=== PATIENT | male | born 1960 | race Caucasian/White ===

== ENCOUNTER 2019-05-12 05:11 | Emergency (ER) | payer MEDICAID ==
[2019-05-12] MEDS ORDERED: Sodium Chloride 0.9% 1000 ML 1,000 ML IV STA (05:40)
[2019-05-12] MEDS ORDERED: Hydromorphone 1 mg/ml Ampule IV ONE ×2 (05:40→08:19)
[2019-05-12] MEDS ORDERED: Zofran 4 MG/2 ML VIAL IV ONE (05:40)
[2019-05-12] MEDS ORDERED: TORAdol 30 mg Injection IV ONE (05:40)
--- NOTE | 2019-05-12 05:40 | ERPHSYRPT ---
- History of Present Illness Historian: patient, family Exam Limitations: no limitations Patient Subjective Stated Complaint: pt states he woke up yesterday morning with l sided abdomenal pain Triage Nursing Assessment: pt is alert an orienteed. states that his pain in l abdomen is 5/10 at this time Timing/Duration: today Activities at Onset: none Quality: sharpness, stabbing Abdominal Pain Onset Location: flank (left) Pain Radiation: groin (left) Severity of Pain-Max: moderate Severity of Pain-Current: moderate Modifying Factors: Improves With: nothing Associated Symptoms: nausea, No fever/chills, No neck pain, No shortness of breath, No vomiting <PILAR WOLFF - Last Filed: 05/12/19 06:16> <JULIO C BEAR - Last Filed: 05/16/19 11:32> - History of Present Illness Time Seen by Provider: 05/12/19 05:30 Physician History: 59 y/o white male presents with h/o sudden onset of left flank pain with radiation into leg groin at 0400 this am. pt has never had this type of pain before. no prior abd surgeries. (PILAR WOLFF) Allergies/Adverse Reactions: No Known Drug Allergies Allergy (Unverified 05/12/19 05:27) - Review of Systems Constitutional: No Symptoms Eyes: No Symptoms Ears, Nose, & Throat: No Symptoms Respiratory: No Symptoms Cardiac: No Symptoms Abdominal/Gastrointestinal: No Abdominal Pain, No Nausea, No Vomiting, No Diarrhea Genitourinary Symptoms: Flank Pain (left flank) Musculoskeletal: No Symptoms Skin: No Symptoms Neurological: No Symptoms Psychological: No Symptoms Endocrine: No Symptoms Hematologic/Lymphatic: No Symptoms Immunological/Allergic: No Symptoms All Other Systems: Reviewed and Negative <PILAR WOLFF - Last Filed: 05/12/19 06:16> - Past Medical History Pertinent Past Medical History: Yes Neurological History: No Pertinent History ENT History: No Pertinent History Cardiac History: No Pertinent History Respiratory History: Asthma Endocrine Medical History: No Pertinent History Musculoskeletal History: No Pertinent History GI Medical History: No Pertinent History History: No Pertinent History Psycho-Social History: No Pertinent History Male Reproductive Disorders: No Pertinent History - Past Surgical History Past Surgical History: No Neuro Surgical History: No Pertinent History Cardiac: No Pertinent History Respiratory: No Pertinent History Gastrointestinal: No Pertinent History Genitourinary: No Pertinent History Musculoskeletal: No Pertinent History Male Surgical History: No Pertinent History - Social History Smoking Status: Never smoker Exposure to second hand smoke: No Drug Use: none <PILAR WOLFF - Last Filed: 05/12/19 06:16> - Physical Exam General Appearance: moderate distress, alert, anxiety Eye Exam: PERRL/EOMI, eyes nml inspection Ears, Nose, Throat Exam: normal ENT inspection, moist mucous membranes Neck Exam: normal inspection, non-tender, supple, full range of motion Respiratory Exam: normal breath sounds, lungs clear, No chest tenderness, No respiratory distress, No airway intact Cardiovascular Exam: regular rate/rhythm, normal heart sounds, normal peripheral pulses Gastrointestinal/Abdomen Exam: soft, normal bowel sounds, No tenderness Rectal Exam: not done Back Exam: normal inspection, normal range of motion, No CVA tenderness, No vertebral tenderness Extremity Exam: normal inspection, normal range of motion, No pelvis stable Neurologic Exam: alert, oriented x 3, cooperative, call or contact centre manager II-XII nml as tested, normal mood/affect, nml cerebellar function Skin Exam: normal color, warm, dry Lymphatic Exam: No adenopathy SpO2 Interpretation: normal SpO2: 98 O2 Delivery: Room Air <PILAR WOLFF - Last Filed: 05/12/19 06:16> - Nursing Vital Signs Nursing Vital Signs: Initial Vital Signs Temperature 97.3 F 05/12/19 05:13 Respiratory Rate 19 05/12/19 05:13 Blood Pressure 158/112 05/12/19 05:13 O2 Sat by Pulse Oximetry 98 05/12/19 05:13 Pain Scale Pain Intensity 2 - Course Nursing assessment & vital signs reviewed: Yes <PILAR WOLFF - Last Filed: 05/12/19 06:16> - CT Exams Abdomen/Pelvis CT Interpretation: Other (stone distal left ureter - mild obstruction. R kidney lower pole 2.9 exophytic lesion - suspicious for solid mass) <JULIO C BEAR - Last Filed: 05/16/19 11:32> Ordered Tests: Medication Summary Discontinued Medications Generic Name Dose Route Start Last Admin Trade Name Freq PRN Reason Stop Dose Admin Hydromorphone HCl 1 mg 05/12/19 05:40 05/12/19 06:08 Hydromorphone 1 Mg/Ml Ampule IV 05/12/19 05:41 1 mg STAT ONE Administration Hydromorphone HCl Confirm 05/12/19 05:46 Hydromorphone 1 Mg/Ml Ampule Administered 05/12/19 05:47 Dose 1 mg .ROUTE .STK-MED ONE Hydromorphone HCl 0.5 mg 05/12/19 08:19 05/12/19 08:25 Hydromorphone 1 Mg/Ml Ampule IV 05/12/19 08:20 0.5 mg STAT ONE Administration Hydromorphone HCl Confirm 05/12/19 08:22 Hydromorphone 1 Mg/Ml Ampule Administered 05/12/19 08:23 Dose 1 mg .ROUTE .STK-MED ONE Sodium Chloride 1,000 mls @ 999 mls/hr 05/12/19 05:40 05/12/19 07:54 Sodium Chloride 0.9% 1000 Ml IV 05/12/19 06:40 Infused .Q1H1M STA Infusion Sodium Chloride Confirm 05/12/19 05:46 Sodium Chloride 0.9% 1000 Ml Administered 05/12/19 05:47 Dose 1,000 mls @ ud .ROUTE .STK-MED ONE Ketorolac Tromethamine 30 mg 05/12/19 05:40 05/12/19 06:07 Toradol 30 Mg Injection IV 05/12/19 05:41 30 mg STAT ONE Administration Ketorolac Tromethamine Confirm 05/12/19 05:45 Toradol 30 Mg Injection Administered 05/12/19 05:46 Dose 30 mg .ROUTE .STK-MED ONE Ondansetron HCl 4 mg 05/12/19 05:40 05/12/19 06:07 Zofran 4 Mg/2 Ml Vial IV 05/12/19 05:41 4 mg STAT ONE Administration Ondansetron HCl Confirm 05/12/19 05:45 Zofran 4 Mg/2 Ml Vial Administered 05/12/19 05:46 Dose 4 mg .ROUTE .STK-MED ONE Lab/Rad Data: Laboratory Result Diagrams 05/12/19 05:43 05/12/19 05:43 Laboratory Results 05/12/19 05/12/19 05/12/19 Range/Units 05:45 05:43 05:43 WBC 4.8 (4.0-10.5) K/mm3 RBC 5.11 (4.1-5.6) M/mm3 Hgb 15.1 (12.5-18.0) gm/dl Hct 45.0 (42-50) % MCV 88.1 (78-100) fl MCH 29.5 (26-32) pg MCHC 33.6 (32-36) g/dl RDW 13.5 (11.5-14.0) % Plt Count 231 (150-450) K/mm3 MPV 8.8 (6-9.5) fl Gran % 37.7 (36.0-66.0) % Eos # (Auto) 0.12 (0-0.5) Absolute Lymphs (auto) 2.39 (1.0-4.6) Absolute Monos (auto) 0.43 (0.0-1.3) Lymphocytes % 50.2 H (24.0-44.0) % Monocytes % 9.0 (0.0-12.0) % Eosinophils % 2.5 (0.00-5.0) % Basophils % 0.6 (0.0-0.4) % Absolute Granulocytes 1.79 (1.4-6.9) Basophils # 0.03 (0-0.4) Sodium 144 (137-145) mmol/L Potassium 3.9 (3.5-5.1) mmol/L Chloride 106 (98-107) mmol/L Carbon Dioxide 28 (22-30) mmol/L Anion Gap 13.8 (5-15) MEQ/L BUN 15 (9-20) mg/dL Creatinine 1.00 (0.66-1.25) mg/dL Estimated GFR > 60.0 ML/MIN Glucose 103 (74-106) mg/dL Lactic Acid 1.5 (0.4-2.0) Calcium 9.2 (8.4-10.2) mg/dL Total Bilirubin 0.40 (0.2-1.3) mg/dL AST 23 (17-59) U/L ALT 16 (0-50) U/L Alkaline Phosphatase 47 (38-126) U/L Serum Total Protein 7.1 (6.3-8.2) g/dL Albumin 4.1 (3.5-5.0) g/dL Amylase 120 H (30-110) U/L Lipase 560 H (23-300) U/L - Progress Progress: improved, re-examined Counseled pt/family regarding: lab results, diagnosis, need for follow-up, rad results <PILAR WOLFF - Last Filed: 05/12/19 06:16> <JULIO C BEAR - Last Filed: 05/16/19 11:32> - Progress Progress Note: 05/12/19 06:52 transfer of care to dr. bear. i reviewed pt hx, condition lab results d/w him. he is aware of pending ct scan abd/pelvis. he accepts pt. (PILAR WOLFF) 05/12/19 08:[address] with patient; he is not planning on going to work and will stay for further exam with reference to the 2.9 CM right kidney lesion. US is ordered. Patient does not have a primary care provider; he was advised that he will need to have one with further evaluation of this lesion. 05/12/19 09:46 Advised patient that the US was evaluated by the radiologist - a CT with contrast was suggested; this has been ordered. Patient and spouse voiced understanding and satisfaction. 05/12/19 11:23 CT Abd/Pelvis with contrast right renal mass demonstrates faint enhancement worrisome for malignancy. Discussed with Dr. Peters's office ([facility]); she has set an appointment for May at 11:00AM. Advised patient of the plan for appointment. (JULIO C BEAR) - Departure Departure Disposition: Home Critical Care Time: No <PILAR WOLFF - Last Filed: 05/12/19 06:16> <JULIO C BEAR - Last Filed: 05/16/19 11:32> - Departure Condition: Stable Referrals: DOCTOR,NO FAMILY [Primary Care Provider] - Additional Instructions: drink plenty of fluids. add ibuprofen 600mg orally 3 times daily with food. follow up with urologist/primary doctor as needed. In addition, you have been scheduled for an appointment with Dr. Peters, Urologist, in [place] on Wednesday at 11:00 AM. Take CD of the radiology studies done this morning. Prescriptions: Hydrocodone/APAP 5/325 [[place]add[place] 5/325 mg] 1 each PO Q6H PRN PRN #10 tablet MDD 4 PRN Reason: Pain
[2019-05-12] MEDS ORDERED: TORAdol 30 mg Injection ONE (05:45)
[2019-05-12] MEDS ORDERED: Zofran 4 MG/2 ML VIAL ONE (05:45)
[2019-05-12 05:46] LABS: Absolute Neutrophil Ct (ANC) 1.79 (1.4-6.9); BASOPHIL % 0.6 % (0.0-0.4); Basophil (Absolute #) 0.03 (0-0.4); Eosinophil % 2.5 % (0.00-5.0); Eosinophil (Absolute #) 0.12 (0-0.5); Hemoglobin 15.1 gm/dl (12.5-18.0); Lymphocyte (Absolute #) 2.39 (1.0-4.6); Lymphocytes % 50.2 % (24.0-44.0); Mean Cell Volume 88.1 fl (78-100); Mean Corpuscular Hemoglobin 29.5 pg (26-32); Mean Corpuscular Hgb Concent. 33.6 g/dl (32-36); Mean Platelet Volume 8.8 fl (6-9.5); Monocyte (Absolute #) 0.43 (0.0-1.3); Neutrophil % 37.7 % (36.0-66.0); Platelet Count 231 K/mm3 (150-450); Red Blood Count 5.11 M/mm3 (4.1-5.6); Red Cell Distribution Width 13.5 % (11.5-14.0); White Blood Count 4.8 K/mm3 (4.0-10.5)
[2019-05-12] MEDS ORDERED: Sodium Chloride 0.9% 1000 ML 1,000 ML ONE (05:46)
[2019-05-12] MEDS ORDERED: Hydromorphone 1 mg/ml Ampule ONE ×2 (05:46→08:22)
[2019-05-12 05:52] LABS: ALBUMIN 4.1 g/dL (3.5-5.0); ALKALINE PHOSPHATASE 47 U/L (38-126); AMYLASE 120 U/L (30-110); ANION GAP 13.8 MEQ/L (5-15); BLOOD UREA NITROGEN 15 mg/dL (9-20); CHLORIDE 106 mmol/L (98-107); Calcium 9.2 mg/dL (8.4-10.2); Carbon Dioxide 28 mmol/L (22-30); Glucose 103 mg/dL (74-106); LIPASE 560 U/L (23-300); Potassium 3.9 mmol/L (3.5-5.1); SGOT/AST 23 U/L (17-59); SGPT/ALT 16 U/L (0-50); SODIUM 144 mmol/L (137-145); Total Protein 7.1 g/dL (6.3-8.2)
[2019-05-12 08:35] VITALS: O2SAT 96
--- NOTE | 2019-05-12 09:07 | XRAY ---
Indication: Left flank pain. Multiple contiguous axial images obtained through the abdomen and pelvis without contrast as ordered. Comparison: None Lung bases demonstrates minimal dependent atelectasis. No infiltrate or effusion. Heart is not enlarged. Small hiatal hernia. Noncontrasted stomach and bowel loops appear nonobstructed. Normal appendix. No free fluid/air. 2-3 mm distal left ureter calculus just proximal to the UVJ. Left ureter is slightly prominent up to 8 mm in diameter along with mild hydronephrosis consistent with partial obstructive uropathy. Inferior left kidney demonstrates a 1 cm round slightly dense lesion, complex/viscus cyst versus solid mass. The right kidney demonstrates a 2.8 cm exophytic soft tissue mass inferiorly and a 6 mm mid pole exophytic cyst. Lack of IV contrast precludes further characterization of these renal lesions. Incidental enlarged prostate gland impresses on the base of the bladder. Liver demonstrates a a few cysts, largest left lobe near the dome of the diaphragm measuring 1.2 cm. Spleen is enlarged measuring 12.7 cm in greatest axial dimension. Remaining liver, gallbladder, pancreas, spleen, adrenal glands, kidneys, ureters, bladder, and aorta appear unremarkable for noncontrast exam. Osseous structures intact with mild degenerative changes throughout the thoracolumbar spine. Small fatty right inguinal hernia. Impression: 1. 2-3 mm distal left ureter calculus producing partial obstruction. Also left renal 1 cm round slightly dense lesion, possible complex/viscus cyst versus solid mass. 2. Right renal 2.8 cm exophytic mass and [address] or MRI with contrast exam may yield further information. 3. Enlarged prostate gland, small hiatal hernia, hepatic cysts, splenomegaly, and fatty right inguinal hernia. Comment: Preliminary interpretation was made by [facility]. No critical discrepancy. CTDI 14.26
--- NOTE | 2019-05-12 09:10 | XRAY ---
Indication: Left flank pain. CT proven distal left ureter calculus. Right renal mass. Two-dimensional renal sonogram performed. Comparison: None Right kidney measures 10.2 x 4.8 x 5.2 cm and the left measures 10.4 x 5.6 x 6.0 cm. Left kidney is mildly hydronephrotic consistent with known distal obstructive uropathy. No perinephric fluid. Right lower kidney demonstrates a 3.0 x 2.5 x 2.4 cm exophytic echogenic solid mass with faint color Doppler flow. No other solid/cystic renal mass. Cortical medullary differentiation preserved. Images of the urinary bladder grossly unremarkable. Normal bilateral ureteral jets. Impression: 1. Right lower renal solid exophytic mass as detailed. CT or MRI with contrast exam may yield further information. 2. Mild left renal hydronephrosis consistent with known distal obstructive uropathy. There is normal bilateral ureteral jets.
[2019-05-12 09:19] VITALS: BP 131/64; PULSE 58
--- NOTE | 2019-05-12 10:23 | XRAY ---
Indication: Right renal mass. Known distal left ureter calculus. Multiple contiguous axial images obtained through the abdomen and pelvis using 80 cc Isovue 370 contrast only. Comparison: Noncontrast exam taken earlier in the day. Right renal lower pole mass demonstrates faint heterogeneous enhancement. Stable tiny right mid renal exophytic cyst. Previous 1 cm left lower renal cortical lesion does not enhance favoring cyst. Previous 2-3 mm distal left ureter calculus now seen in the urinary bladder. Stable mild left hydronephrosis with mild ureteral prominence. Stable enlarged prostate gland, tiny hepatic cysts, splenomegaly, small hiatal hernia, and fatty right inguinal hernia. Noncontrasted stomach and bowel loops remain nonobstructed again with normal appendix. Remaining liver, gallbladder, pancreas, spleen, adrenal glands, kidneys, ureters, bladder, and aorta appear unremarkable. Impression: 1. Right renal mass demonstrates faint enhancement worrisome for malignancy. Stable bilateral renal cysts. 2. Distal left ureteral micro-calculus has passed into the urinary bladder. There remains mild left hydronephrosis and mild hydroureter. 3. Stable enlarged prostate gland, tiny hepatic cysts, splenomegaly, hiatal hernia, and fatty inguinal hernia. CTDI 15.01
== END 2019-05-12 12:21 | disposition home or self-care (01) ==
LOC: ED 05:11
DX: N28.9 Disorder of kidney and ureter, unspecified (principal)
CPT/HCPCS: 36000; 36415; 74176; 74177; 76770; 80053; 82150; 83605; 83690; 85025; 96360; 96374; 96375; 96376; 99284; J1170; J1885; J2405

== ENCOUNTER 2020-05-31 11:21 | Emergency (ER) | payer OTHER ==
[2020-05-31] MEDS ORDERED: BABY ASPIRIN 81 MG CHEW PO ONE (11:23)
[2020-05-31 11:32] VITALS: O2SAT 98
[2020-05-31 11:42] LABS: Absolute Neutrophil Ct (ANC) 2.74 (1.4-6.9); BASOPHIL % 0.3 % (0.0-0.4); Basophil (Absolute #) 0.02 (0-0.4); Eosinophil % 1.5 % (0.00-5.0); Eosinophil (Absolute #) 0.09 (0-0.5); Hematocrit 45.8 % (42-50); Hemoglobin 15.3 gm/dl (12.5-18.0); Lymphocyte (Absolute #) 2.45 (1.0-4.6); Lymphocytes % 42.1 % (24.0-44.0); Mean Cell Volume 88.4 fl (78-100); Mean Corpuscular Hemoglobin 29.5 pg (26-32); Mean Corpuscular Hgb Concent. 33.4 g/dl (32-36); Mean Platelet Volume 8.7 fl (7.5-11.0); Monocyte (Absolute #) 0.52 (0.0-1.3); Monocytes % 8.9 % (0.0-12.0); Neutrophil % 47.2 % (36.0-66.0); Platelet Count 209 K/mm3 (150-450); Red Blood Count 5.18 M/mm3 (4.1-5.6); Red Cell Distribution Width 13.6 % (11.5-14.0); White Blood Count 5.8 K/mm3 (4.0-10.5)
[2020-05-31 11:52] LABS: INR 1.07 (0.8-3.0); PROTIME 12.1 SECONDS (8.83-12.87)
--- NOTE | 2020-05-31 11:53 | ERPHSYRPT ---
- History of Present Illness Historian: patient Exam Limitations: no limitations Patient Subjective Stated Complaint: Pt states "I had chest pain this morning and it went up into my left arm and neck. I went to rehab and they wanted me checked out." Triage Nursing Assessment: Pt presented alert and oriented X 3, skin pwd. Pt ambulates with an upright steady gait, able to speak in clear full sentences pt in no apparent respiratory distress. Pt resting comfortably on bed. Physician History: 60yo male left sided CP this morning. Has had in the past but usually self resolves radiate to left side neck and upper chest Went ot PT today and was advised to come to ER for eval Has pains to right lower axilla and hip pains on unknown etiology NO fever, cough, or SOB. No tob or etoh. NO cardiac hx. Feels it is stress. Timing/Duration: today Activities at Onset: none Quality: stabbing Location: substernal Chest Pain Radiation: neck Severity of Pain-Max: mild Severity of Pain-Current: none Modifying Factors: Improves With: nothing Associated Symptoms: denies symptoms Prior Chest Pain/Cardiac Workup: no prior cardiac workup Aspirin Treatment Today: provided by ED Allergies/Adverse Reactions: No Known Drug Allergies Allergy (Verified 07/22/19 01:32) Home Medications: No Reportable Medications [No Reported Medications] 05/31/20 [History] Hx Tetanus, Diphtheria Vaccination/Date Given: No Hx Influenza Vaccination/Date Given: No Hx Pneumococcal Vaccination/Date Given: No Immunizations Up to Date: Yes Travel Risk - International Travel Have you traveled outside of the country in past 3 weeks: No - Coronavirus Screening Are you exhibiting any of the following symptoms?: No Close contact with a COVID-19 positive Pt in past 14-21 Days: No - Review of Systems Constitutional: No Fever, No Chills Eyes: No Symptoms Ears, Nose, & Throat: No Symptoms Respiratory: No Cough, No Dyspnea Cardiac: Chest Pain, No Edema, No Syncope Abdominal/Gastrointestinal: No Abdominal Pain, No Nausea, No Vomiting, No Diarrhea Genitourinary Symptoms: No Dysuria Musculoskeletal: Neck Pain, No Back Pain Skin: No Rash Neurological: No Dizziness, No Focal Weakness, No Sensory Changes Psychological: No Symptoms Endocrine: No Symptoms All Other Systems: Reviewed and Negative - Past Medical History Pertinent Past Medical History: Yes Neurological History: No Pertinent History ENT History: No Pertinent History Cardiac History: No Pertinent History Respiratory History: Asthma Endocrine Medical History: Other Musculoskeletal History: Osteoarthritis GI Medical History: No Pertinent History History: No Pertinent History Psycho-Social History: No Pertinent History Male Reproductive Disorders: No Pertinent History Other Medical History: Kidney CA 2020, - Past Surgical History Past Surgical History: No Neuro Surgical History: No Pertinent History Cardiac: No Pertinent History Respiratory: No Pertinent History Gastrointestinal: No Pertinent History Genitourinary: No Pertinent History Musculoskeletal: No Pertinent History Male Surgical History: No Pertinent History Other Surgical History: cancer removed from right kidney - Social History Smoking Status: Never smoker Exposure to second hand smoke: Yes Drug Use: none Patient Lives Alone: No - Nursing Vital Signs Nursing Vital Signs: Initial Vital Signs Temperature 98.2 F 05/31/20 11:22 Pulse Rate 80 05/31/20 11:22 Respiratory Rate 20 05/31/20 11:22 Blood Pressure 180/111 05/31/20 11:22 O2 Sat by Pulse Oximetry 98 05/31/20 11:22 Pain Scale Pain Intensity 0 - Physical Exam General Appearance: no apparent distress, alert Eye Exam: PERRL/EOMI, eyes nml inspection Ears, Nose, Throat Exam: normal ENT inspection, moist mucous membranes Neck Exam: normal inspection, non-tender, supple, full range of motion Respiratory Exam: normal breath sounds, lungs clear, No respiratory distress Cardiovascular Exam: regular rate/rhythm, normal heart sounds Gastrointestinal/Abdomen Exam: soft, No tenderness, No mass Back Exam: normal inspection, No CVA tenderness, No vertebral tenderness Extremity Exam: normal inspection, normal range of motion Neurologic Exam: alert, oriented x 3, cooperative, normal mood/affect, sensation nml, No motor deficits Skin Exam: normal color, warm, dry SpO2: 98 - Course Nursing assessment & vital signs reviewed: Yes EKG Interpreted by Me: RATE (74), Sinus Rhythm, NORMAL AXIS, NORMAL INTERVALS, NORMAL QRS - Radiology Exams Chest X-ray Interpretation: Discussed w/ radiologist, Negative Ordered Tests: Active Orders 24 hr Category Date Time Status Environmental Sustainability Manager STAT Care 05/31/20 11:24 Active EKG-ER Only STAT Care 05/31/20 11:23 Active IV Insertion STAT Care 05/31/20 11:23 Active Oxygen-ED Only Nasal Cannula 2 lpm Care 05/31/20 11:23 Active CHEST 2 VIEWS (PA AND LAT) Stat Exams 05/31/20 11:24 Completed CBC W DIFF Stat Lab 05/31/20 11:23 Completed CMP Stat Lab 05/31/20 11:45 Completed NT PRO BNP Stat Lab 05/31/20 11:45 Completed PROTIME WITH INR Stat Lab 05/31/20 11:45 Completed PTT Stat Lab 05/31/20 11:45 Completed TROPONIN Q3H Lab 05/31/20 11:45 Completed TROPONIN Q3H Lab 05/31/20 15:30 Completed TROPONIN Q3H Lab 05/31/20 18:30 Ordered TROPONIN Q3H Lab 05/31/20 21:30 Ordered Medication Summary Discontinued Medications Generic Name Dose Route Start Last Admin Trade Name Freq PRN Reason Stop Dose Admin Aspirin 324 mg 05/31/20 11:23 05/31/20 11:48 Baby Aspirin 81 Mg Chew PO 05/31/20 11:24 324 mg STAT ONE Administration Lab/Rad Data: Laboratory Result Diagrams 05/31/20 11:23 05/31/20 11:45 Laboratory Results 05/31/20 05/31/20 05/31/20 Range/Units 15:30 11:45 11:45 WBC (4.0-10.5) K/mm3 RBC (4.1-5.6) M/mm3 Hgb (12.5-18.0) gm/dl Hct (42-50) % MCV (78-100) fl MCH (26-32) pg MCHC (32-36) g/dl RDW (11.5-14.0) % Plt Count (150-450) K/mm3 MPV (7.5-11.0) fl Gran % (36.0-66.0) % Eos # (Auto) (0-0.5) Absolute Lymphs (auto) (1.0-4.6) Absolute Monos (auto) (0.0-1.3) Lymphocytes % (24.0-44.0) % Monocytes % (0.0-12.0) % Eosinophils % (0.00-5.0) % Basophils % (0.0-0.4) % Absolute Granulocytes (1.4-6.9) Basophils # (0-0.4) PT 12.1 (8.83-12.87) SECONDS INR 1.07 (0.8-3.0) APTT 31.8 (24.1-36.1) SECONDS Sodium (137-145) mmol/L Potassium (3.5-5.1) mmol/L Chloride (98-107) mmol/L Carbon Dioxide (22-30) mmol/L Anion Gap (5-15) MEQ/L BUN (9-20) mg/dL Creatinine (0.66-1.25) mg/dL Estimated GFR ML/MIN Glucose (74-106) mg/dL Calcium (8.4-10.2) mg/dL Total Bilirubin (0.2-1.3) mg/dL AST (17-59) U/L ALT (0-50) U/L Alkaline Phosphatase (38-126) U/L Troponin I < 0.012 < 0.012 (0.000-0.034) ng/mL NT-Pro-B Natriuret Pep (0-900) pg/mL Serum Total Protein (6.3-8.2) g/dL Albumin (3.5-5.0) g/dL 05/31/20 05/31/20 Range/Units 11:45 11:23 WBC 5.8 (4.0-10.5) K/mm3 RBC 5.18 (4.1-5.6) M/mm3 Hgb 15.3 (12.5-18.0) gm/dl Hct 45.8 (42-50) % MCV 88.4 (78-100) fl MCH 29.5 (26-32) pg MCHC 33.4 (32-36) g/dl RDW 13.6 (11.5-14.0) % Plt Count 209 (150-450) K/mm3 MPV 8.7 (7.5-11.0) fl Gran % 47.2 (36.0-66.0) % Eos # (Auto) 0.09 (0-0.5) Absolute Lymphs (auto) 2.45 (1.0-4.6) Absolute Monos (auto) 0.52 (0.0-1.3) Lymphocytes % 42.1 (24.0-44.0) % Monocytes % 8.9 (0.0-12.0) % Eosinophils % 1.5 (0.00-5.0) % Basophils % 0.3 (0.0-0.4) % Absolute Granulocytes 2.74 (1.4-6.9) Basophils # 0.02 (0-0.4) PT (8.83-12.87) SECONDS INR (0.8-3.0) APTT (24.1-36.1) SECONDS Sodium 139 (137-145) mmol/L Potassium 4.8 (3.5-5.1) mmol/L Chloride 105 (98-107) mmol/L Carbon Dioxide 29 (22-30) mmol/L Anion Gap 9.9 (5-15) MEQ/L BUN 21 H (9-20) mg/dL Creatinine 1.08 (0.66-1.25) mg/dL Estimated GFR > 60.0 ML/MIN Glucose 94 (74-106) mg/dL Calcium 9.7 (8.4-10.2) mg/dL Total Bilirubin 0.70 (0.2-1.3) mg/dL AST 23 (17-59) U/L ALT 22 (0-50) U/L Alkaline Phosphatase 59 (38-126) U/L Troponin I (0.000-0.034) ng/mL NT-Pro-B Natriuret Pep 20.6 (0-900) pg/mL Serum Total Protein 7.7 (6.3-8.2) g/dL Albumin 4.5 (3.5-5.0) g/dL - Progress Progress: improved Progress Note: 05/31/20 16:23 Pt is chest pain free in ER ASA given NO cardiac hx Trop neg x 2 EKG neg Low risk DC home with advice to f/u with PCP. 05/31/20 16:25 HEART score low risk. Blood Culture(s) Obtained: No Antibiotics given: No Counseled pt/family regarding: lab results, diagnosis, need for follow-up, rad results - Departure Departure Disposition: Home Clinical Impression: Chest pain, Stress reaction Condition: Stable Critical Care Time: No Referrals: DOCTOR,NO FAMILY [Primary Care Provider] - Instructions: Chest Pain (DC) Additional Instructions: monitor symptoms closely Consider stress test with PCP if CP persistent Return to ER if worse.
[2020-05-31 11:55] LABS: PTT 31.8 SECONDS (24.1-36.1)
[2020-05-31 12:06] LABS: ALBUMIN 4.5 g/dL (3.5-5.0); ALKALINE PHOSPHATASE 59 U/L (38-126); ANION GAP 9.9 MEQ/L (5-15); BLOOD UREA NITROGEN 21 mg/dL (9-20); CHLORIDE 105 mmol/L (98-107); Calcium 9.7 mg/dL (8.4-10.2); Carbon Dioxide 29 mmol/L (22-30); Creatinine 1 1.08 mg/dL (0.66-1.25); EST GLOMERULAR FILTRATION RATE > 60.0 ML/MIN; Glucose 94 mg/dL (74-106); NT PRO BNP 20.6 pg/mL (0-900); Potassium 4.8 mmol/L (3.5-5.1); SGOT/AST 23 U/L (17-59); SGPT/ALT 22 U/L (0-50); SODIUM 139 mmol/L (137-145); Total Protein 7.7 g/dL (6.3-8.2)
--- NOTE | 2020-05-31 12:12 | XRAY ---
Indication: Left chest pain. Comparison: September 06, 2019. PA/lateral chest remains clear. Heart and mediastinal structures within normal limits. Bony thorax intact again with mild degenerative changes. No new/acute findings. Impression: Continued nonacute chest.
[2020-05-31 16:16] VITALS: BP 133/93; PULSE 72
== END 2020-05-31 16:34 | disposition home or self-care (01) ==
LOC: ED 11:21
DX: R07.9 Chest pain, unspecified (principal); F43.9 Reaction to severe stress, unspecified
CPT/HCPCS: 36000; 36415; 71046; 80053; 83880; 84484; 85025; 85610; 85730; 93005; 93041; 99284; A9270-GY